=== PATIENT | female | born 1955 ===

== ENCOUNTER 2018-01-06 11:44 | Emergency (ER) | payer BC ==
[2018-01-06 11:57] VITALS: BP 138/71
--- NOTE | 2018-01-06 12:03 | UC ---
Back Pain HPI - HPI Summary HPI Summary: 62 yo female presents with right sided lower back pain. She tells me that 1 week ago she was staying at a camp sleeping on very thin and uncomfortable bunk beds. The next morning she woke with right sided lower back pain that would "pull" with certain twisting/bending/lifting motions and radiation down into her right groin. She took some ibuprofen and did stretching exercises for 3 days , which resolved her pain. Yesterday, however, she went back to her usual routine of long walks and biking - this morning woke up with the back pain having returned. She has not taken ibuprofen yet. Denies fever, chills, dysuria , abdominal pain, n/v/d/c, flank pain, saddle anesthesia, or loss of bladder/ bowel control. - History of Current Complaint Chief Complaint: UCBackPain Stated Complaint: LOW BACK PAIN Time Seen by Provider: 01/06/18 12:02 Hx Obtained From: Patient Onset/Duration: Gradual Onset Severity Initially: Moderate Severity Currently: Moderate Pain Intensity: 5 Pain Scale Used: 0-10 Numeric - Allergies/Home Medications Allergies/Adverse Reactions: Allergies Allergy/AdvReac Type Severity Reaction Status Date / Time Sulfa (Sulfonamide Allergy Hives Verified 01/06/18 11:57 Antibiotics) Home Medications: Home Medications Cholecalciferol (Vitamin D3) [Vitamin D3] 1,000 unit PO 01/06/18 [History] PMH/Surg Hx/FS Hx/Imm Hx - Additional Past Medical History Additional PMH: None Previously Healthy: Yes - Surgical History Surgical History: Yes Surgery Procedure, Year, and Place: - Family History Known Family History: Positive: None - Social History Occupation: Employed Full-time Lives: With Family Alcohol Use: Daily Substance Use Type: None Smoking Status (MU): Never Smoked Tobacco Review of Systems Constitutional: Negative Skin: Negative Respiratory: Negative Cardiovascular: Negative Gastrointestinal: Negative Neurovascular: Negative Musculoskeletal: Other: - LBP Neurological: Negative Psychological: Negative All Other Systems Reviewed And Are Negative: Yes Physical Exam - Summary Physical Exam Summary: GENERAL: NAD. WDWN. No pain distress. SKIN: No rashes, sores, lesions, or open wounds. NECK: Supple. FROM. Nontender. CHEST: CTAB. No r/r/w. No accessory muscle use. Breathing comfortably and in no distress. CV: RRR. Without m/r/g. Pulses intact. Cap refill <2seconds MSK: TTP over right lumbar paraspinal muscles. Pain with flexion and extension of spine. Positive SLR on right. Positive FLACO for back pain on right. Strength 5/5 B/L LEs including dorsiflexion and plantar flexion. FROM B/L LEs. No edema. NEURO: Alert. CN II-XII grossly intact. Sensations intact B/L LEs L3-S1. PSYCH: Age appropriate behavior. Triage Information Reviewed: Yes Vital Signs: Initial Vital Signs Temp 97.9 F 01/06/18 11:52 Pulse 59 01/06/18 11:52 Resp 18 01/06/18 11:52 BP 138/71 01/06/18 11:52 Pulse Ox 100 01/06/18 11:52 Vital Signs Reviewed: Yes Back Pain Course/Dx - Course Course Of Treatment: Suspect muscle strain/spasm of lower back. Pt was offered toradol and/or flexeril, but declined. No XRs at this time as she has had no injury and appears to be muscular in nature. She wishes to resume taking ibuprofen and limiting her activities and stretching more often. Will f/u with PCP if symptoms worsen or persist. - Differential Dx/Diagnosis Provider Diagnoses: Low back spasm Discharge - Sign-Out/Discharge Documenting (check all that apply): Patient Departure All imaging exams completed and their final reports reviewed: No Studies - Discharge Plan Condition: Stable Disposition: HOME Patient Education Materials: Muscle Spasm (ED), Lower Back Exercises (ED) Referrals: Xenia Vieira, MOY [Primary Care Provider] - Mariela Kelly DO [Doctor of Osteopathy] - If Needed Additional Instructions: If you develop a fever, shortness of breath, chest pain, new or worsening symptoms - please call your PCP or go to the ED. 1) May take ibuprofen 600mg every 6 hours as needed for pain 2) Continue your stretches and f/u with Dr. Kelly or your PCP if your symptoms persist or worsen. - Billing Disposition and Condition Condition: STABLE Disposition: Home
== END 2018-01-06 12:50 | disposition home or self-care (01) ==
LOC: UCEAST 11:44
DX: M62.830 Muscle spasm of back (principal)
CPT/HCPCS: 99201; G0463

== ENCOUNTER 2019-03-20 12:10 | Observation (INO) | payer BC ==
--- OUTSIDE RECORDS SUMMARY | 2019-03-20 12:40 | XMS REPORT | Summary of Care ---
:1955 Author Organization [facility] Address [address] [facility] [place] [address] Care Team Providers Name Role Phone To Ashton Primary Care Provider Reason for Visit Reason Comments Earache causing headache and tooth pain Flu Vaccine Encounter Details Date Type Department Care Team Description 02/13/2019 Office Visit [place] N[facility] Aparicio, Seasonal allergic Practice JOIST SETTER rhinitis, unspecified [address] trigger (Primary Dx) [place] [address] [place] [address] [phone] Allergies Active Allergy Reactions Severity Noted Date Comments Susan 08/04/2007 CAUSED PALPITATIONS Sulfa Antibiotics Hives 08/04/2007 documented as of this encounter (statuses as of 02/13/2019) Medications Medication Sig Dispensed Refills Start Date End Date Status Cholecalciferol Take by mouth. 30 Tab 0 12/17/2010 Active (VITAMIN D) 1000 UNIT Oral Tab ESTRADIOL VAGINAL Place 1 Dose into 1 Tube 5 06/24/2016 Active (ESTRACE VAGINAL) 0.1 the vagina MG/GM Vaginal Cream DIRECTED. Use smallest amount on applicator at bedtime for a week, then twice weekly. fluticasone (FLONASE) [place] 2 Sprays in 1 Bottle 2 02/13/2019 Active 50 MCG/ACT Nasal nose DAILY. SuspensionIndications: Seasonal allergic rhinitis, unspecified trigger loratadine Take 1 Tab by 30 Tab 0 02/13/2019 Active (CLARITIN,ALAVERT) 10 mouth DAILY. MG Oral TabIndications: Seasonal allergic rhinitis, unspecified trigger documented as of this encounter (statuses as of 02/13/2019) Active Problems Problem Noted Date Varicose veins of leg with pain 02/20/2012 Heart palpitations 01/26/2012 Overview: Winter 2011 on sudafed holter monitor negative 2004 work up [place] cardiology stress test and echocardiogram normal Family history of colon cancer 11/01/2011 Colon polyps 11/01/2011 Overview: Colonoscopy 10/24 Vitamin D deficiency 12/17/2010 Mixed hyperlipidemia 07/23/2008 documented as of this encounter (statuses as of 02/13/2019) Immunizations Name Administration Dates Next Due Influenza (IM) Preservative Free 02/13/2019 Influenza Vaccine Whole 03/16/2007, 03/20/2006, 03/19/2004 TETANUS & DIPHTHERIA TOXOID (OVER 7 YRS) 06/24/2016 dT Vaccine 04/11/2000 documented as of this encounter Social History Tobacco Use Types Packs/Day Years Used Date Former Smoker Cigarettes 0.5 5 Quit: 03/26/1977 Smokeless Tobacco: Never Used Alcohol Use Drinks/Week oz/Week Comments Yes 0 Standard drinks or equivalent 0.0 1 BEER A DAY Sex Assigned at Date Recorded Not on file Job Start Date Occupation Industry Not on file Not on file Not on file Travel History Travel Start Travel End No recent travel history available. documented as of this encounter Last Filed Vital Signs Vital Sign Reading Time Taken Comments Blood Pressure 130/72 02/13/2019 8:45 AM EDT Pulse 60 02/13/2019 8:45 AM EDT Temperature 36.7 02/13/2019 8:45 AM EDT C (98 F) Respiratory Rate - - Oxygen Saturation 98% 02/13/2019 8:45 AM EDT Inhaled Oxygen Concentration - - Weight 58.5 kg (129 lb) 02/13/2019 8:45 AM EDT Height 160 cm (5' 3") 02/13/2019 8:45 AM EDT Body Mass Index 22.85 02/13/2019 8:45 AM EDT documented in this encounter Patient Instructions Patient InstructionsNury Strickland NP - 02/13/2019 8:00 AM EDTFlonase 2 sprays each nostril once daily. Loratadine 1 tablet daily. Continue neti pot. Tylenol and motrin for pain as needed. Call or return if symptoms worsen or fail to improve. documented in this encounter Progress Notes Nury Strickland NP - 02/13/2019 8:00 AM EDT PATIENT: Velia Nathan : 1955 DATE OF SERVICE: 02/13/2019 CHIEF COMPLAINT: Chief Complaint Patient presents with Earache causing headache and tooth pain Flu Vaccine Subjective HISTORY OF PRESENT ILLNESS: Velia Nathan is a 63-y.o. female. HPI First started one week ago with fluid feeling in left ear, a couple of days ago ear became painful, now radiating into head and upper back teeth. Stabbing pain. Pain is intermittent. Throbbed more yesterday. Nothing aggravates, ibuprofen helped. Frederica feverish yesterday but was 98.6 when she checked. No sore throat. Has had some PND. Feeling raspy this week with her voice. Cough for about onemonth. No chest pain or shortness of breath. Fatigue and achey last week (arms) nothing now. Past Medical History: Diagnosis Date Actinic keratosis of multiple sites of head and neck Postmenopausal , first Family History Problem Relation Age of Onset Thyroid Mother Heart Father Breast Cancer Maternal Aunt Cancer Unknown GRANDMOTHER W/ BREAST CANCER/GRANDFATHER W/ COLON CANCER Current Outpatient Medications Medication Sig Cholecalciferol (VITAMIN D) 1000 UNIT Oral Tab Take by mouth. ESTRADIOL VAGINAL (ESTRACE VAGINAL) 0.1 MG/GM Vaginal Cream Place 1 Dose into the vagina DIRECTED. Use smallest amount on applicator at bedtime for a week, then twice weekly. fluticasone (FLONASE) 50 MCG/ACT Nasal Suspension [place] 2 Sprays in nose DAILY. loratadine (CLARITIN,ALAVERT) 10 MG Oral Tab Take 1 Tab by mouth DAILY. No current facility-administered medications for this visit. Allergies Allergen Reactions Susan CAUSED PALPITATIONS Sulfa Antibiotics Hives Social History Socioeconomic History Marital status: Spouse name: Not on file Number of children: Not on file Years of education: Not on file Highest education level: Not on file Occupational History Not on file Social Needs Financial resource strain: Not on file Food insecurity: Worry: Not on file Inability: Not on file Transportation needs: Medical: Not on file Non-medical: Not on file Tobacco Use Smoking status: Former Smoker Packs/day: 0.50 Years: 5.00 Pack years: 2.50 Types: Cigarettes Last attempt to quit: 03/26/1977 Years since quittin.9 Smokeless tobacco: Never Used Substance and Sexual Activity Alcohol use: Yes Alcohol/week: 0.0 standard drinks Comment: 1 BEER A DAY Drug use: No Sexual activity: Yes Partners: Male Lifestyle Physical activity: Days per week: Not on file Minutes per session: Not on file Stress: Not on file Relationships Social connections: Talks on phone: Not on file Gets together: Not on file Attends jainism service: Not on file Active member of club or organization: Not on file Attends meetings of clubs or organizations: Not on file Relationship status: Not on file Intimate partner violence: Fear of current or ex partner: Not on file Emotionally abused: Not on file Physically abused: Not on file Forced sexual activity: Not on file Other Topics Concern Back Care Not Asked Bike Helmet Not Asked Blood Transfusions Not Asked Caffeine Concern Yes Comment: 2 c coffee/day Exercise Yes Comment: walks 30-45 mins 5 days per week Hobby Hazards Not Asked International Travel Not Asked Service Not Asked Occupational Exposure Not Asked Seat Belt Not Asked Self-Exams Not Asked Sleep Concern Not Asked Special Diet Yes Comment: portion controlled Stress Concern Not Asked Weight Concern Yes Comment: goal wt 130 lbs 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 Negative for fever and malaise/fatigue. HENT: Positive for congestion (PND), ear pain (left ear) and hearing loss (mild) . Negative for ear discharge, sinus pain, sore throat and tinnitus. Eyes: Negative for pain, discharge and redness. Respiratory: Positive for cough. Negative for shortness of breath. Cardiovascular: Negative for chest pain and palpitations. Gastrointestinal: Negative for abdominal pain, nausea and vomiting. Musculoskeletal: Negative for joint pain and myalgias. Neurological: Positive for headaches. Objective PHYSICAL EXAM: VITALS: BP 130/72 (BP Location: Left arm, Patient Position: Sitting) | Pulse 60 | Temp 98 F (36.7 C) (Tympanic) | Ht 5' 3" (1.6 m) | Wt 129 lb ( 58.5 kg) | LMP 01/31/2008 | SpO2 98% | BMI 22.85 kg/m Body mass index is 22.85 kg/m. Physical Exam Vitals signs and nursing note reviewed. Constitutional: General: She is not in acute distress. Appearance: Normal appearance. She is well-developed. She is not ill- appearing or toxic-appearing. HENT: Right Ear: Tympanic membrane, ear canal and external ear normal. No mastoid tenderness. Tympanic membrane is not erythematous, retracted or bulging. Left Ear: Ear canal and external ear normal. Decreased hearing noted. No mastoid tenderness. Tympanic membrane is bulging. Tympanic membrane is not erythematous or retracted. Nose: Mucosal edema and rhinorrhea present. Rhinorrhea is clear. Right Sinus: No maxillary sinus tenderness or frontal sinus tenderness. Left Sinus: No maxillary sinus tenderness or frontal sinus tenderness. Mouth/Throat: Mouth: Mucous membranes are moist. Pharynx: Oropharynx is clear. Uvula midline. Posterior oropharyngeal erythema present. No oropharyngeal exudate. Tonsils: No tonsillar exudate. Eyes: Conjunctiva/sclera: Conjunctivae normal. Cardiovascular: Rate and Rhythm: Normal rate and regular rhythm. Heart sounds: Normal heart sounds. Pulmonary: Effort: Pulmonary effort is normal. Breath sounds: Normal breath sounds. Lymphadenopathy: Head: Right side of head: No submental, submandibular or tonsillar adenopathy. Left side of head: No submental, submandibular or tonsillar adenopathy. Cervical: No cervical adenopathy. Right cervical: No superficial cervical adenopathy. Left cervical: No superficial cervical adenopathy. Upper Body: Right upper body: No supraclavicular adenopathy. Left upper body: No supraclavicular adenopathy. Neurological: Mental Status: She is alert. Psychiatric: Behavior: Behavior is cooperative. ASSESSMENT / IMPRESSION: ICD-9-CM ICD-10-CM 1. Seasonal allergic rhinitis, unspecified trigger 477.9 J30.2 fluticasone ( FLONASE) 50 MCG/ACT Nasal Suspension loratadine (CLARITIN,ALAVERT) 10 MG Oral Tab Plan 1. Seasonal allergic rhinitis, unspecified trigger Flonase 2 sprays each nostril once daily. Loratadine 1 tablet daily. Continue neti pot. Tylenol and motrin for pain as needed. Call or return if symptoms worsen or fail to improve. - fluticasone (FLONASE) 50 MCG/ACT Nasal Suspension; [place] 2 Sprays in nose DAILY. Dispense: 1 Bottle; Refill: 2 - loratadine (CLARITIN,ALAVERT) 10 MG Oral Tab; Take 1 Tab by mouth DAILY. Dispense: 30 Tab; Refill: 0 Author: Nury Strickland NP 02/13/2019 09:53 documented in this encounter Plan of Treatment Health Maintenance Due Date Last Done Comments ZOSTER IMMUNIZATION SERIES 2005 (1 of 2) PAP SMEAR 06/24/2019 06/24/2016, 06/24/2016, 03/21/2013, Additional history exists MAMMOGRAM (SCREENING) 09/27/2019 09/26/2018, 06/30/2017, 06/24/2016, Additional history exists DEPRESSION SCREENING 01/18/2020 01/17/2019 COLONOSCOPY SCREENING 03/26/2020 03/26/2015, 11/01/2011, 10/31/2011, Additional history exists LIPID DISORDER SCREENING 02/02/2024 02/01/2019, 09/20/2018, 06/24/2016, Additional history exists HEPATITIS C SCREENING Completed 04/07/2014 INFLUENZA VACCINE Completed 02/13/2019, 03/16/2007, 03/20/2006, Additional history exists HPV IMMUNIZATION SERIES Aged Out No longer eligible based on patient's age to complete this topic MENINGOCOCCAL VACCINE IMM Aged Out No longer eligible based on patient's age to complete this topic PNEUMOCOCCAL 0-64 YRS Aged Out No longer eligible based on patient's age to complete this topic documented as of this encounter Results Not on filedocumented in this encounter Visit Diagnoses Diagnosis Seasonal allergic rhinitis, unspecified trigger - Primary documented in this encounter Insurance Payer Benefit Plan / Subscriber ID Effective Dates Phone Address Type Group SONIA NUNES xxxxxxxxxxxx 2014-Present Sonia BRADLEY PPO (Work) documented as of this encounter Advance Directives Type Date Recorded Patient Cafeteria Cashier Explanation Advance Directives 04/28/2015 7:56 AM Health Care Proxy
--- OUTSIDE RECORDS SUMMARY | 2019-03-20 12:40 | XMS REPORT | Continuity of Care Document ---
:1955 External Reference #:[id number] Author Name Emeterio Gudino, OD Address [address] [place] [address] Care Team Providers Name Role Phone To Ashton MD - Internal Care Team Information Orthopedic Shoe Fitter [phone] Medicine Problems Active Problems Provider Date Vitreous degeneration Emeterio Coburn O.D. Onset: 09/08/2014 Presbyopia Emeterio Coburn O.D. Onset: 05/05/2014 Regular astigmatism Emeterio Coburn O.D. Onset: 05/05/2014 Tear film insufficiency Emeterio Coburn O.D. Onset: 05/05/2014 Retinal detachment Emeterio Coburn O.D. Onset: 05/05/2014 Social History Type Date Description Comments Sex Unknown ETOH Use Drinks 1 Alcoholic Beverage Per Day Tobacco Use Start: Unknown Patient has never smoked Smoking Status Reviewed: 02/25/19 Patient has never smoked Allergies, Adverse Reactions, Alerts Active Allergies Reaction Severity Comments Date Seasonal 05/05/2014 Sulfa Antibiotics 09/07/2017 Inactive Allergies NKDA 05/05/2014 Medications Active Medications SIG Qnty Indications Ordering Provider Date Vitamin D Unknown 1000Unit Tablets Immunizations Description No Information Available Vital Signs Date Vital Result Comment 02/25/2019 9:11am Intraocular Pressure Right Eye 15 mmHg Intraocular Pressure Left Eye 15 mmHg 09/07/2017 11:11am Intraocular Pressure Right Eye 15 mmHg Intraocular Pressure Left Eye 15 mmHg Results Description No Information Available Procedures Date Code Description Status 02/25/2019 30970 Ophthalmoscopy Subsequent Completed 02/25/2019 72979 Refraction Completed 02/25/2019 95458 Eye Exam Est Comprehensive Completed Medical Devices Description No Information Available Encounters Description No Information Available Assessments Date Code Description Provider 02/25/2019 H43.813 Vitreous degeneration, bilateral Emeterio Gudino, OD 02/25/2019 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
[2019-03-20 12:44] LABS: ABS Basophils 0.1 10^3/ul (0-0.2); ABS Eosinophils 0.3 10^3/ul (0-0.6); ABS Monocytes 0.5 10^3/ul (0-0.8); ABS Neutrophils 2.9 10^3/ul (1.5-7.7); Eosinophil % 5.5 %; Hematocrit 39 % (35-47); Hemoglobin 13.2 g/dL (12.0-16.0); Lymphocyte % 21.4 %; Mean Corpuscular HGB Conc 34 g/dL (31-36); Mean Corpuscular Hemoglobin 33 pg (27-31); Mean Corpuscular Volume 96 fL (80-97); Mean Platelet Volume 7.1 fL (7.4-10.4); Nucleated Red Blood Cells % 0.1; Platelet Count 249 10^3/uL (150-450); Red Blood Count 4.01 10^6 /uL (3.70-4.87); Red Cell Distribution Width 13 % (10-15); White Blood Count 4.7 10^3/uL (3.5-10.8)
--- NOTE | 2019-03-20 12:45 | ED ---
Palpitations / Dysrhythmia - HPI Summary HPI Summary: This patient is a 63 year old F presenting to [facility] with a chief complaint of intermittent palpitations since 2 days ago. She had 2 episodes of bradycardia lasting 45 minutes each. She describes the symptoms as needing to take a deep breath. The patient rates the pain 0/10 in severity. Symptoms aggravated by nothing. Symptoms alleviated by nothing. Patient reports cough, weakness and tingling sensation of the left hand, weakness in legs. Patient denies CP, difficulty breathing, fever, chills, ABD pain, nausea, vomiting, swelling in legs. Pt does not have any cardiac hx, but wore a heart monitor 10 years ago for PVCs. Pt never had a HI or catheterization. Pt does not have HTN, diabetes, but has borderline high cholesterol. She last saw her PCP in September 2018. Pt has not had travelled for long periods of time. - History of Current Complaint Chief Complaint: EDDysrhythmPalp Time Seen by Provider: 03/20/19 12:40 Hx Obtained From: Patient Onset/Duration: Sudden Onset, Lasting Days - 2, Still Present Severity Initially: Moderate Severity Currently: Moderate Aggravating: Nothing Alleviating: Nothing - Allergy/Home Medications Allergies/Adverse Reactions: Allergies Allergy/AdvReac Type Severity Reaction Status Date / Time Sulfa (Sulfonamide Allergy Hives Verified 01/06/18 11:57 Antibiotics) PMH/Surg Hx/FS Hx/Imm Hx Previously Healthy: No Cardiovascular History: Denies: Hx Aneurysm, Hx Atrial Fibrillation Sensory History: Denies: Hx Vision Problem, Hx Deafness EENT History: Denies: Hx Deafness, Hx Auditory Problems - Surgical History Surgical History: Yes Surgery Procedure, Year, and Place: Infectious Disease History: No Infectious Disease History: Denies: Traveled Outside the [place] in Last 30 Days - Family History Known Family History: Positive: None - Social History Alcohol Use: Daily Substance Use Type: Reports: None Smoking Status (MU): Never Smoked Tobacco Review of Systems Negative: Fever, Chills Positive: Palpitations. Negative: Chest Pain Respiratory: Other - negative - difficulty breathing Positive: Cough Negative: Abdominal Pain, Vomiting, Nausea Musculoskeletal: Other - negative - swelling in legs Neurological: Other - positive - tingling sensation of the left hand Positive: Weakness - left hand, legs All Other Systems Reviewed And Are Negative: Yes Physical Exam - Summary Physical Exam Summary: Constitutional: Well-developed, Well-nourished, Alert. (-) Distressed Skin: Warm, Dry HENT: Normocephalic; Atraumatic Eyes: Conjunctiva normal Neck: Musculoskeletal ROM normal neck. (-) JVD, (-) Stridor, (-) Tracheal deviation Cardio: Rhythm regular, rate normal, Heart sounds normal; Intact distal pulses; The pedal pulses are 2+ and symmetric. Radial pulses are 2+ and symmetric. Pulmonary/Chest wall: Effort normal. (-) Respiratory distress, (-) Wheezes, (-) Rales Abd: Soft, (-) tenderness, (-) Distension, (-) Guarding, (-) Rebound Musculoskeletal: no leg swelling, no calf tenderness Neuro: Alert, Oriented x3 Psych: Mood and affect Normal Triage Information Reviewed: Yes Vital Signs On Initial Exam: Initial Vitals Temp Pulse Resp BP Pulse Ox 97.8 F 79 16 156/99 100 03/20/19 12:21 03/20/19 12:21 03/20/19 12:21 03/20/19 12:21 03/20/19 12:21 Vital Signs Reviewed: Yes Procedures - Sedation Patient Received Moderate/Deep Sedation with Procedure: No Diagnostics - Vital Signs Vital Signs Temp Pulse Resp BP Pulse Ox 03/20/19 12:21 97.8 F 79 16 156/99 100 - Laboratory Result Diagrams: 03/20/19 12:30 03/20/19 12:26 Lab Statement: Any lab studies that have been ordered have been reviewed, and results considered in the medical decision making process. - Radiology CXR Radiology Interpretation Completed By: Radiologist Summary of Radiographic Findings: IMPRESSION: HYPERINFLATION, CONSISTENT WITH COPD. NO ACTIVE CARDIOPULMONARY DISEASE. These findings were reviewed by Dr. Mcclain. - EKG 1330 Cardiac Rate: NL - 80 BPM EKG Rhythm: Sinus Rhythm Summary of EKG Findings: EKG at 1330 shows 80 BPM, sinus rhythm, nml axis, nml intervals Course/Dx - Course Course Of Treatment: This patient is a 63 year old F presenting to [facility] with a chief complaint of intermittent palpitations since 2 days ago. She had 2 episodes of bradycardia lasting 45 minutes each. She describes the symptoms as needing to take a deep breath. The patient rates the pain 0/10 in severity. Symptoms aggravated by nothing. Symptoms alleviated by nothing. Patient reports cough, weakness and tingling sensation of the left hand, weakness in legs. Patient denies CP, difficulty breathing, fever, chills, ABD pain, nausea, vomiting, swelling in legs. Pt does not have any cardiac hx, but wore a heart monitor 10 years ago for PVCs. Pt never had a HI or catheterization. Pt does not have HTN, diabetes, but has borderline high cholesterol. She last saw her PCP in September 2018. Pt has not had travelled for long periods of time. Physical exam shows shows no leg swelling, no calf tenderness, and is otherwise unremarkable. Lab results show troponin I 0.03. All other abnormal lab results are not pertinent to current cc. CXR IMPRESSION: HYPERINFLATION, CONSISTENT WITH COPD. NO ACTIVE CARDIOPULMONARY DISEASE. EKG at 1330 shows 80 BPM, sinus rhythm, nml axis, nml intervals. During ED course, pt was given aspirin. At 1348, Dr. Oscar agrees to admit pt. Dx are palpitations, CP, dyspnea. - Diagnoses Provider Diagnoses: Palpitations, Chest pain, Dyspnea - Physician Notifications Discussed Care Of Patient With: Anamika Oscar Time Discussed With Above Provider: 13:48 Instructed by Provider To: Other - At 1348, Dr. Oscar agrees to admit pt. Discharge ED - Sign-Out/Discharge Documenting (check all that apply): Patient Departure - admit - Discharge Plan Condition: Stable Disposition: ADMITTED TO [facility] - Billing Disposition and Condition Condition: STABLE Disposition: Admitted to [facility] - Attestation Statements Document Initiated by Valentee: Yes Documenting Scribe: Tariq Lin Provider For Whom Chery is Documenting (Include Credential): Dr. Chuck Mcclain MD Scribe Attestation: Tariq Damon scribed for Dr. Chuck Mcclain MD on 03/21/19 at 0824. Scribe Documentation Reviewed: Yes Provider Attestation: The documentation as recorded by the Tariq gordon accurately reflects the service I personally performed and the decisions made by me, Dr. Chuck Mcclain MD Status of Scribe Document: Viewed
[2019-03-20 12:50] LABS: INR 0.95 (0.82-1.09)
[2019-03-20 13:02] LABS: Albumin 4.4 g/dL (3.2-5.2); BUN/Creatinine Ratio 23.3 (8-20); Calcium 9.9 mg/dL (8.6-10.3); EGFR African American 97.4 (>60); EGFR Non-African American 80.5 (>60); Globulin 2.2 g/dL (2-4); Total Bilirubin 0.5 mg/dL (0.2-1.0); Total Protein 6.6 g/dL (6.4-8.9)
[2019-03-20 13:03] LABS: Troponin I 0.03 ng/mL (<0.04)
[2019-03-20] MEDS ORDERED: Aspirin 81 mg CHEW TAB* 81 MG TAB.CHEW PO ONE (13:40)
[2019-03-20] MEDS ORDERED: Al Hydrox/Mg Hydrox/Simet LIQ* 30 ML UDC PO PRN (15:50)
[2019-03-20] MEDS ORDERED: Enoxaparin(*) 40 MG/0.4 ML SYR SUBCUT SCH (16:00)
--- NOTE | 2019-03-20 19:34 | HP ---
CC: Xenia Vieira, [facility]; Dr. Ashton * HISTORY AND PHYSICAL: DATE OF ADMISSION: 03/20/19. PROVIDER: Shannan Ruiz NP. PRIMARY CARE PROVIDER: Dr. Ashton. ATTENDING PHYSICIAN WHILE IN THE HOSPITAL: Dr. Anamika Oscar * (dictated by Shannan Ruiz NP). CHIEF COMPLAINT: Palpitations. HISTORY OF PRESENT ILLNESS: Ms. Nathan is a 63-year-old female with past medical history significant for vitamin D deficiency who presents to the emergency room with complaints of palpitations on and off since Monday. The patient reports that she had 2 episodes on Monday and with these episodes of palpitations, felt lightheaded and spacey. She reported that it was hard to catch her breath and she felt weak in the knees. She reports that she has had more episodes on Monday and again, she woke up this morning with palpitations that lasted since 6:30 a.m., which had not resolved, again feeling lightheaded, shaky, felt spacey, and having a hard time catching her breath with the palpitations, dizzy symptoms. The patient presented to the emergency room for further evaluation. The patient does know that she had a cardiac workup with Dr. Palumbo approximately 13 years ago for palpitations. At that time, she was diagnosed with benign PVCs. The patient does report that on Monday her heart rate was between 44 and 48. While in the emergency room, the patient had routine lab work drawn and troponin was 0.03 x2. Due to her feeling of palpitations and family history of heart disease, hospital medicine was asked to see and evaluate the patient for admission. PAST MEDICAL HISTORY: Significant for vitamin D deficiency. PAST SURGICAL HISTORY: x1. HOME MEDICATIONS: Vitamin D. ALLERGIES: SULFA. FAMILY HISTORY: Father with a history of coronary artery disease, NH and open heart surgery, valve replacement and open heart surgery at the age of 68. No reported history of diabetes. Mother due to lung cancer at the age of 84. SOCIAL HISTORY: The patient quit smoking at the age of 22; prior to that, she smoked half a pack a day for 5 years. She does report she drinks 1 to 2 beers daily. Denies any drug use. She is a retired nurse. She is . Surrogate decision maker in the event she is unable to make her own decisions is her , [employer]. She is a full code REVIEW OF SYSTEMS: The patient denies any fever, chills, or unintended weight loss. Denies any chest pain or edema. She does report an occasional cough with white secretions. Denies any hemoptysis or shortness of breath. No nausea , vomiting, diarrhea, or abdominal pain. Denies any hematuria, dysuria, focal weakness, sensory loss, dysphagia, arthralgias, or myalgias. She denies any rashes. She does have a small scabbed area noted to her right wrist. Denies any psychosis or anxiety. PHYSICAL EXAMINATION GENERAL: At this time, Ms. Nathan is alert and oriented, resting on the stretcher in the emergency room. She is in no acute distress. VITAL SIGNS: Blood pressure 156/99, heart rate 79, respirations are 16, O2 saturation is 100%, temperature was 97.8. HEENT: Head is atraumatic, normocephalic. Eyes: EOMs are intact. Sclerae anicteric and not pale. Oral mucosa appeared to be moist. NECK: Supple. LUNGS: Clear to auscultation bilaterally. No wheezes, rales, or rhonchi. CARDIAC: S1, S2. Regular rate and rhythm. No murmurs, rubs, or gallops. ABDOMEN: Soft and nontender. Bowel sounds are present x4. MUSCULOSKELETAL: She is able to move all 4 extremities. There is no clubbing or cyanosis. Pedal pulses are +2 bilaterally. NEUROLOGIC: She is awake, alert, and oriented x3. Speech is clear. Thought process is intact. There are no gross focal deficits. SKIN: Intact. She does have a small scabbed area noted to her right wrist. DIAGNOSTIC STUDIES/LAB DATA: WBCs are 4.7, RBCs 4.01, hemoglobin 13.3, hematocrit was 39, platelet count was 249. INR is 0.95. Sodium 139, potassium 4.0, chloride 104, carbon dioxide 26, anion gap was 9, BUN was 17, creatinine 0.73, glucose is 103, calcium 9.9, magnesium 2.0, total bilirubin 0.50. ASTs were 16, ALTs were 15, alkaline phosphatase was 38. Troponin was 0.03 x3. He had a chest x-ray, the radiologist's impression: No active cardiopulmonary disease. She had an electrocardiogram, which showed sinus rhythm at a rate of 80. No ST or T-wave changes. ASSESSMENT AND PLAN: Ms. Nathan is a 63-year-old female with no significant past medical history, who presented to the emergency room with complaints of palpitations and feeling lightheaded, spacey, and hard to catch her breath, who will be admitted to rule out under observation. 1. Palpitations. The patient will be monitored on telemetry. I will get a nuclear stress test to rule out acute coronary syndrome. The patient is currently sinus rhythm with a heart rate of 80s on the monitor in the emergency room. Her troponin is 0.03 x2. The patient is mildly hypertensive and does report increased cholesterol, but is not currently treated for hypertension or cholesterol at this time. The patient does report that her father had a myocardial infarction and open heart surgery at the age of 68. Due to these findings, the patient's WILLEM score is 2, giving her an 8% risk at 14-day all- cause mortality of no recurrent myocardial infarction or severe recurrent ischemia requiring urgent revascularization. We will continue to trend her troponins. I will repeat an EKG in the a.m. I will order a nuclear stress test. 2. FEN. She can have a caffeine-free diet as she will have a nuclear stress test tomorrow. 3. Code status. She is a full code. 4. DVT prophylaxis. I will place her on Lovenox subcu. 5. Disposition. The patient will be placed under observation on [address] [place] [address] telemetry. TIME SPENT: Time spent on this admission was 60 minutes, greater than half of that time was spent at the bedside reviewing events leading thus far to her hospitalization, performing physical exam, and reviewing my plan of care. I have discussed this with my attending, Dr. Anamika Oscar; she is in agreement with my plan. SHANNAN RUIZ, MOY [id number]/[facility] #: [id number] AMELIA
[2019-03-21 05:03] LABS: HDL Cholesterol 92.6 mg/dL
[2019-03-21] MEDS ORDERED: Aspirin 81 mg CHEW TAB* 81 MG TAB.CHEW PO SCH (09:00)
[2019-03-21 11:39] VITALS: BP 124/74
--- NOTE | 2019-03-21 20:40 | DS ---
CC: Xenia Vieira NP * DISCHARGE SUMMARY: DATE OF ADMISSION: 03/20/19 DATE OF DISCHARGE: 03/21/19 PRIMARY CARE PROVIDER: Xenia Vieira NP. ATTENDING PHYSICIAN: Dr. Casey Roque.* (DICTATED BY JOSUE CUEVAS NP) PRIMARY DIAGNOSES: 1. Frequent premature ventricular contractions. 2. Hyperlipidemia. SECONDARY DIAGNOSES: None. STUDIES WHILE IN THE HOSPITAL: 1. EKG on 03/20/19 shows normal sinus rhythm with a rate of 80, QTc 446. No ST changes. 2. Chest x-ray on 03/20/19 reads as hyperinflation consistent with COPD. No active cardiopulmonary disease. 3. EKG on 03/21/19 shows sinus bradycardia with a rate of 49. QTc 438. No ST changes. 4. Nuclear cardiac stress test on 03/21/19 reads as no evidence for stress- induced myocardial ischemia. Normal left ventricular wall motion and ejection fraction. Assessment is low risk based on nuclear portion. HISTORY OF PRESENT ILLNESS AND HOSPITAL COURSE: Ms. Nathan is a 63-year-old female with no significant past medical history who presented to the emergency room on 03/20/19 with complaints of palpitations. Please see the history and physical by Shannan Ruiz NP for a complete summary of the events leading up to this hospitalization. In short, the patient does report a distant history of palpitations, so nothing recently until earlier this week when she had two episodes of palpitations and lightheadedness. These symptoms persisted intermittently and so she presents to the emergency room out of concern. In the emergency room, the patient had labs, which were unremarkable. She was noted to have negative troponin, though she was noted to have a WILLEM score of 2 and so was admitted by the hospitalist service. The patient had 3 negative troponins, which were flat at 0.03. She did have a lipid panel showing triglycerides of 72, total cholesterol of 246, LDL of 139, and HDL of 92. Vital signs have been stable. Telemetry monitoring revealed normal sinus rhythm with somewhat frequent PVCs. The patient does report feeling 2 episodes of palpitations overnight. There is no significant grouping of PVCs on telemetry that correlates with her symptoms. She did have a stress test this morning which was low risk as noted above. At this point, there are no acute cardiac concerns. It does seem as though the patient is likely feeling these PVCs, but at this point they are not frequent enough to necessarily necessitate treatment and the patient is hesitant to start any medications. She is agreeable to discharge home with outpatient followup with cardiology. On exam, she is alert and oriented x4. She has no focal neurological deficits. Her heart has a regular rate and rhythm without murmurs , rubs, or gallops. Her lungs are clear to auscultation without rhonchi, wheezes, or rubs. There is no edema. Physical exam is, otherwise, benign. Ms. Nathan is stable for discharge today. Most recent vital signs are as follows : Temp 97.7, heart rate 62, respiratory rate 20, oxygen saturation 100% on room air, blood pressure 124/74. DISCHARGE MEDICATIONS: Continued Medications: 1. Cholecalciferol 1000 units p.o. daily. DISCHARGE PLAN: Ms. Nathan will be discharged home. Activity will be as tolerated. Diet will be heart healthy. I did speak with the patient about diet changes that she can make to gain better control of her lipids and she is agreeable to this. She does not wish to start any medications at this time. I did speak with the patient about followup for her symptomatic PVCs. She has seen Dr. Palumbo in the past and is willing to follow up with cardiology, which I think is reasonable. She should follow up with her primary care provider in the next 4 to 7 days and she is aware that she will need to see her primary care provider in order to get a referral to see cardiology. She should return to the emergency room or nearest hospital for any worsening of symptoms, shortness of breath, lightheadedness, dizziness, chest discomfort, high fevers, chills, night sweats, loss of consciousness, or any other worrisome signs or symptoms. DISCHARGE CONDITION: Stable. DISCHARGE DISPOSITION: Home. This is a summarized report of a complex medical history and hospital stay. For further details, please see the entire medical record. TIME SPENT: Approximately 40 minutes were spent on this discharge. JOSUE CUEVAS NP [id number]/[facility] #: [id number] AMELIA
== END 2019-03-21 14:03 | disposition home or self-care (01) ==
LOC: ED 12:10 → MEDTELE 16:30
PROVIDERS: ADMIT Internal Medicine; ATTEND Internal Medicine
DX: I49.3 Ventricular premature depolarization (principal); E78.5 Hyperlipidemia, unspecified; J44.9 Chronic obstructive pulmonary disease, unspecified; R00.2 Palpitations; Z88.2 Allergy status to sulfonamides; R06.00 Dyspnea, unspecified; R05 Cough; R53.1 Weakness; R53.83 Other fatigue; R94.31 Abnormal electrocardiogram [ECG] [EKG]; Z82.49 Family history of ischemic heart disease and other diseases of the circulatory system; Z87.891 Personal history of nicotine dependence
CPT/HCPCS: 36415; 71046; 78452; 80053; 80061; 83735; 84484; 85025; 85610; 93005; 93017; 96372; 99283; A9270-GY; A9502; G0378; J1650